=== PATIENT | female | born 1955 | race African-American/Black ===

== ENCOUNTER 2018-01-04 09:34 | Inpatient (IN) | payer OTHER ==
[2018-01-04] MEDS: CEFEPIME 2GM/50 ML (PMX) 50 ML IVPB (10:26)
[2018-01-04] MEDS: ACETAMINOPHEN 325 MG TAB PO ×2 (10:27→18:05)
[2018-01-04] MEDS: SODIUM CHLORIDE 0.9% 1L BAG IV* (10:29)
[2018-01-04 10:35] LABS: ANION GAP 10 (5-13); BLOOD UREA NITROGEN 18 mg/dl (7-20); CALCIUM 10.4 mg/dl (8.4-10.2); CARBON DIOXIDE 31 mmol/L (21-31); CHLORIDE 100 mmol/L (97-110); Estimated GFR > 60 mL/min (>60); GLUCOSE 137 mg/dl (70-220); POTASSIUM 4.4 mmol/L (3.5-5.1); SODIUM 141 mmol/L (135-144)
[2018-01-04 10:36] LABS: ADD MAN DIFF? NO
[2018-01-04 10:37] LABS: PARTIAL THROMBOPLASTIN TIME 28.1 Sec (23.0-35.0); PROTIME 13.3 Sec (11.9-14.9)
[2018-01-04 10:38] LABS: WHITE BLOOD COUNT 10.9 10^3/ul (4.8-10.8)
[2018-01-04 10:38] LABS: ABNORMAL IP MESSAGE 1; BASOPHILS % 0.2 % (0.0-2.0); EOSINOPHILS % 0.1 % (0.0-7.0); HEMATOCRIT 39.6 % (37.0-47.0); HEMOGLOBIN 12.8 g/dl (12.0-16.0); LYMPHOCYTES # 0.5 10^3/ul (0.8-2.9); LYMPHOCYTES % 4.7 % (15.0-51.0); MEAN CORPUSCULAR HEMOGLOBIN 29.8 pg (29.0-33.0); MEAN CORPUSCULAR HGB CONC 32.3 g/dl (32.0-37.0); MEAN CORPUSCULAR VOLUME 92.3 fl (82.0-101.0); MEAN PLATELET VOLUME 11.1 fl (7.4-10.4); MONOCYTES % 9.3 % (0.0-11.0); NEUTROPHIL # 9.3 10^3/ul (1.6-7.5); NEUTROPHILS % 85.2 % (39.0-77.0); PLATELET COUNT 187 10^3/UL (140-415); POSITIVE DIFF @See below; RED BLOOD COUNT 4.29 10^6/ul (4.20-5.40); RED CELL DISTRIBUTION WIDTH 13.3 % (11.5-14.5)
[2018-01-04 10:47] LABS: TROPONIN-I < 0.012 ng/ml (0.000-0.120)
[2018-01-04] MEDS: VANCOMYCIN 1 GM (PMX) 250 ML IVPB (11:09)
[2018-01-04 12:07] LABS: ADD UMIC YES; UR ASCORBIC ACID NEGATIVE (NEGATIVE); UR BACTERIA FEW /HPF (NONE SEEN); UR BILIRUBIN (Dip) NEGATIVE (NEGATIVE); UR BLOOD (Dip) 1+ mg/dL (NEGATIVE); UR CLARITY CLEAR (CLEAR); UR COLOR YELLOW (YELLOW); UR GLUCOSE (Dip) NEGATIVE (NEGATIVE); UR KETONES (Dip) NEGATIVE (NEGATIVE); UR LEUKOCYTE ESTERASE (Dip) 2+ Leu/ul (NEGATIVE); UR NITRITE (Dip) NEGATIVE (NEGATIVE); UR RBC 5 /HPF (0-5); UR TOTAL PROTEIN (Dip) NEGATIVE (NEGATIVE); UR UROBILINOGEN (Dip) NEGATIVE (NEGATIVE); UR WBC 10 /HPF (0-5)
[2018-01-04] MEDS ORDERED: ONDANSETRON 4 MG INJ IV (15:00)
[2018-01-04] MEDS ORDERED: ACETAMINOPHEN 325 MG TAB PO (15:00)
[2018-01-04] MEDS ORDERED: NACL 0.9% 3 ML SYG IV (16:00)
[2018-01-04] MEDS: INSULIN ASPART [NOVOLOG] 3 ML PEN SC ×4 (18:00→21:00)
[2018-01-04] MEDS: CEFTRIAXONE 1 GM/50 ML (PMX) 50 ML IVPB (18:02)
[2018-01-04] MEDS: hydrALAzine 20 MG INJ IV (20:45)
[2018-01-04] MEDS: ATORVASTATIN 20 MG TAB PO (21:38)
[2018-01-04] MEDS: HYDROCODONE/APAP (5/325) TAB PO (22:05)
[2018-01-05 01:35] LABS: AMPHETAMINE/METHAMPHETAMINE Negative (NEGATIVE); BARBITURATES Negative (NEGATIVE); BENZODIAZEPINES Negative (NEGATIVE); CANNABINOIDS Negative (NEGATIVE); COCAINE Negative (NEGATIVE)
[2018-01-05 01:54] LABS: OPIATES Positive (NEGATIVE)
[2018-01-05] MEDS: ENALAPRILAT 1.25 MG INJ IV (02:40)
[2018-01-05 05:44] LABS: ADD MAN DIFF? NO
[2018-01-05 05:45] LABS: ABNORMAL IP MESSAGE 1; BASOPHILS % 0.3 % (0.0-2.0); EOSINOPHILS # 0.1 10^3/ul (0.0-0.5); EOSINOPHILS % 0.8 % (0.0-7.0); HEMOGLOBIN 13.1 g/dl (12.0-16.0); LYMPHOCYTES # 0.5 10^3/ul (0.8-2.9); LYMPHOCYTES % 7.1 % (15.0-51.0); MEAN CORPUSCULAR HEMOGLOBIN 29.5 pg (29.0-33.0); MEAN CORPUSCULAR VOLUME 92.3 fl (82.0-101.0); MEAN PLATELET VOLUME 11.7 fl (7.4-10.4); MONOCYTES % 14.9 % (0.0-11.0); NEUTROPHIL # 4.9 10^3/ul (1.6-7.5); NEUTROPHILS % 76.4 % (39.0-77.0); PLATELET COUNT 166 10^3/UL (140-415); RED BLOOD COUNT 4.44 10^6/ul (4.20-5.40); RED CELL DISTRIBUTION WIDTH 13.6 % (11.5-14.5)
[2018-01-05 05:45] LABS: WHITE BLOOD COUNT 6.4 10^3/ul (4.8-10.8)
[2018-01-05 06:02] LABS: POSITIVE DIFF @See below
[2018-01-05 06:22] LABS: CHOLESTEROL 124 mg/dl (100-200)
[2018-01-05 06:22] LABS: CHOL/HDL RATIO 3.4 RATIO; HDL CHOLESTEROL 36 mg/dl (35-98); LDL CHOLESTEROL,CALCULATED 71 mg/dl; TRIGLYCERIDES 85 mg/dl (0-149)
[2018-01-05 06:33] LABS: MAGNESIUM 1.1 mg/dl (1.7-2.5)
[2018-01-05 06:33] LABS: PHOSPHORUS 2.6 mg/dl (2.5-4.9)
[2018-01-05 06:36] LABS: ALANINE AMINOTRANSFERASE 28 IU/L (13-69); ALBUMIN 4.2 g/dl (3.3-4.9); ALBUMIN/GLOBULIN RATIO 1.16; ALKALINE PHOSPHATASE 62 IU/L (42-121); ANION GAP 9 (5-13); ASPARTATE AMINO TRANSFERASE 28 IU/L (15-46); BILIRUBIN,INDIRECT 0.4 mg/dl (0-1.1); BILIRUBIN,TOTAL 0.4 mg/dl (0.2-1.3); BLOOD UREA NITROGEN 9 mg/dl (7-20); CALCIUM 10.3 mg/dl (8.4-10.2); CARBON DIOXIDE 30 mmol/L (21-31); CHLORIDE 101 mmol/L (97-110); Estimated GFR > 60 mL/min (>60); GLUCOSE 150 mg/dl (70-220); POTASSIUM 4.2 mmol/L (3.5-5.1); SODIUM 140 mmol/L (135-144); TOTAL PROTEIN 7.8 g/dl (6.1-8.1)
[2018-01-05 06:48] LABS: HEMOGLOBIN A1C 5.9 % (0-5.9)
[2018-01-05] MEDS: ACETAMINOPHEN 325 MG TAB PO (06:51)
[2018-01-05] MEDS: CHOLECALCIFEROL 1,000 UNIT TAB PO (08:15)
[2018-01-05] MEDS: LOSARTAN 50 MG TAB PO ×2 (08:15→21:00)
[2018-01-05] MEDS: INSULIN ASPART [NOVOLOG] 3 ML PEN SC ×7 (08:17→21:56)
[2018-01-05] MEDS: ASPIRIN (EC) 81 MG TAB PO (12:00)
[2018-01-05] MEDS: ENOXAPARIN 40 MG/0.4 ML SYG SC (13:04)
[2018-01-05 13:05] LABS: CREATINE KINASE 92 IU/L (23-200)
[2018-01-05 13:14] LABS: CK INDEX 0.4; CK-MB 0.37 ng/ml (0.0-2.4); TROPONIN-I < 0.012 ng/ml (0.000-0.120)
[2018-01-05] MEDS ORDERED: NALOXONE (0.4 MG/ML) INJ (13:28)
[2018-01-05] MEDS: NALOXONE (0.4 MG/ML) INJ IV (13:36)
[2018-01-05 13:41] LABS: AADO2 Arterial 65.5 mmHg (7.0-24.0); Allen Test ACCEPTAB; Arterial Blood Gas Oxygen Sat 94.9 mmHG (95.0-98.0); Arterial COHb 1.5 % (0.0-3.0); Arterial Fraction of Oxyhgb 93.3 % (93.0-99.0); Arterial HCO3 30.1 mmol/L (22.0-26.0); Arterial MetHb 0.2 % (0.0-1.5); Arterial Total Hemglobin 13.8 g/dl (12.0-18.0); Arterial pCO2 45.7 mmhg (35-45); MODE NASAL CANNULA; Site Left Radial
[2018-01-05] MEDS: MAGNESIUM SULFATE 4 GM/100 ML 100 ML IVPB (15:39)
[2018-01-05] MEDS ORDERED: VANCOMYCIN IV PER PHARMACY XX (16:30)
[2018-01-05] MEDS: SOD CHLORIDE 0.9% 1,000 ML IV (17:40)
[2018-01-05] MEDS ORDERED: DEXTROSE 50% 50 ML SYRINGE IV ×2 (18:00)
[2018-01-05] MEDS ORDERED: GLUCOSE GEL 15 GRAM TUBE BUCCAL (18:00)
[2018-01-05] MEDS ORDERED: GLUCOSE GEL 15 GRAM TUBE PO ×2 (18:00)
[2018-01-05] MEDS ORDERED: GLUCAGON 1 MG INJ IM (18:00)
[2018-01-05 18:31] LABS: LACTIC ACID 2.1 mmol/L (0.5-2.0)
[2018-01-05 20:18] LABS: CREATINE KINASE 71 IU/L (23-200)
[2018-01-05] MEDS: VANCOMYCIN 2 GM in SOD CHLORIDE 0.9% 500 ML IVPB (20:21)
[2018-01-05] MEDS: ACETAMINOPHEN 650 MG SUPP PR (20:22)
[2018-01-05] MEDS: hydrALAzine 20 MG INJ IV (20:26)
[2018-01-05 20:32] LABS: CK INDEX 0.3; CK-MB < 0.22 ng/ml (0.0-2.4); TROPONIN-I < 0.012 ng/ml (0.000-0.120)
[2018-01-05] MEDS: ATORVASTATIN 20 MG TAB PO (21:00)
[2018-01-05] MEDS: CEFEPIME 1GM/50 ML (PMX) 50 ML IVPB (21:52)
[2018-01-06 01:19] LABS: LACTIC ACID 1.1 mmol/L (0.5-2.0)
[2018-01-06] MEDS: INSULIN ASPART [NOVOLOG] 3 ML PEN SC ×7 (01:56→21:15)
[2018-01-06] MEDS: SOD CHLORIDE 0.9% 1,000 ML IV ×3 (01:57→22:44)
[2018-01-06] MEDS: hydrALAzine 20 MG INJ IV ×3 (04:00→23:55)
[2018-01-06 05:45] LABS: ADD MAN DIFF? NO
[2018-01-06] MEDS: VANCOMYCIN 2 GM in SOD CHLORIDE 0.9% 500 ML IVPB ×2 (05:48→19:53)
[2018-01-06 05:50] LABS: WHITE BLOOD COUNT 3.7 10^3/ul (4.8-10.8)
[2018-01-06 05:50] LABS: ABNORMAL IP MESSAGE 1; BASOPHILS % 0.3 % (0.0-2.0); EOSINOPHILS % 0.3 % (0.0-7.0); HEMATOCRIT 42.8 % (37.0-47.0); HEMOGLOBIN 13.4 g/dl (12.0-16.0); LYMPHOCYTES # 0.4 10^3/ul (0.8-2.9); LYMPHOCYTES % 11.2 % (15.0-51.0); MEAN CORPUSCULAR HGB CONC 31.3 g/dl (32.0-37.0); MEAN CORPUSCULAR VOLUME 92.6 fl (82.0-101.0); MEAN PLATELET VOLUME 11.1 fl (7.4-10.4); MONOCYTE # 0.9 10^3/ul (0.3-0.9); NEUTROPHIL # 2.4 10^3/ul (1.6-7.5); NEUTROPHILS % 64.9 % (39.0-77.0); PLATELET COUNT 187 10^3/UL (140-415); RED BLOOD COUNT 4.62 10^6/ul (4.20-5.40); RED CELL DISTRIBUTION WIDTH 13.6 % (11.5-14.5)
[2018-01-06 06:02] LABS: POSITIVE DIFF @See below
[2018-01-06 06:11] LABS: LACTIC ACID 1.2 mmol/L (0.5-2.0)
[2018-01-06 06:15] LABS: ANION GAP 13 (5-13); BLOOD UREA NITROGEN 9 mg/dl (7-20); CALCIUM 9.6 mg/dl (8.4-10.2); CARBON DIOXIDE 27 mmol/L (21-31); CHLORIDE 102 mmol/L (97-110); CREATININE 0.48 mg/dl (0.44-1.00); Estimated GFR > 60 mL/min (>60); GLUCOSE 170 mg/dl (70-220); POTASSIUM 4.5 mmol/L (3.5-5.1); SODIUM 142 mmol/L (135-144)
[2018-01-06 06:17] LABS: MAGNESIUM 1.6 mg/dl (1.7-2.5)
[2018-01-06 06:17] LABS: PHOSPHORUS 2.4 mg/dl (2.5-4.9)
[2018-01-06] MEDS: ACETAMINOPHEN 1000MG/100ML IV 100 ML IVPB ×2 (06:20→20:12)
[2018-01-06 06:24] LABS: CREATINE KINASE 64 IU/L (23-200)
[2018-01-06 06:35] LABS: CK INDEX 0.3; CK-MB < 0.22 ng/ml (0.0-2.4); TROPONIN-I 0.019 ng/ml (0.000-0.120)
[2018-01-06] MEDS: ACETAMINOPHEN 650 MG SUPP PR ×2 (08:04→17:05)
[2018-01-06] MEDS: KETOROLAC 30 MG INJ IV (08:05)
[2018-01-06] MEDS: LOSARTAN 50 MG TAB PO ×2 (09:00→21:00)
[2018-01-06] MEDS: CHOLECALCIFEROL 1,000 UNIT TAB PO (09:00)
[2018-01-06] MEDS: ASPIRIN (EC) 81 MG TAB PO (09:00)
[2018-01-06] MEDS: CEFEPIME 1GM/50 ML (PMX) 50 ML IVPB (09:17)
[2018-01-06] MEDS: SOD CHLORIDE 0.9% 500 ML IV (09:18)
[2018-01-06 10:31] LABS: AMMONIA 17 umol/l (9-30)
[2018-01-06] MEDS: LIDOCAINE 1% (MPF) 5 ML VIAL (15:15)
[2018-01-06 17:12] LABS: Allen Test ACCEPTAB; Arterial Base Excess 1.8 mmol/L (-3.0-3); Arterial Blood Gas Oxygen Sat 98.1 mmHG (95.0-98.0); Arterial COHb 0.8 % (0.0-3.0); Arterial HCO3 27.1 mmol/L (22.0-26.0); Arterial MetHb 0.3 % (0.0-1.5); Arterial pCO2 44.6 mmhg (35-45); MODE NASAL CANNULA; Site Left Radial
[2018-01-06 17:46] LABS: CSF RBC 0 /uL (0-0); CSF WBC 1 /cmm (0-10)
[2018-01-06 17:52] LABS: CSF CLARITY CLEAR; CSF VOLUME 5.5 ml; CSF#TUBE COUNT TUBE#4; CSF#TUBES REC'D 4
[2018-01-06 17:52] LABS: CSF COLOR COLORLESS
[2018-01-06 17:53] LABS: GLUCOSE,CSF 102 mg/dl (50-80)
[2018-01-06 17:53] LABS: TOTAL PROTEIN,CSF 48 mg/dl (12-60)
[2018-01-06] MEDS: PIPER-TAZO 3.375 GM IV (PMX) 100 ML IVPB ×2 (18:38→23:49)
[2018-01-06] MEDS: ATORVASTATIN 20 MG TAB PO (21:00)
[2018-01-06] MEDS: MAGNESIUM SULFATE 2 GM/50 ML 50 ML IVPB (21:06)
[2018-01-06] MEDS ORDERED: ACYCLOVIR 500 MG in SOD CHLORIDE 0.9% 100 ML IVPB (22:00)
[2018-01-06] MEDS: ACYCLOVIR 750 MG in SOD CHLORIDE 0.9% 150 ML IVPB (22:44)
[2018-01-07] MEDS: INSULIN ASPART [NOVOLOG] 3 ML PEN SC ×6 (01:00→20:39)
[2018-01-07] MEDS ORDERED: LABETALOL HCL 20MG INJ IV (05:00)
[2018-01-07 05:31] LABS: ADD MAN DIFF? NO
[2018-01-07] MEDS: PIPER-TAZO 3.375 GM IV (PMX) 100 ML IVPB ×3 (05:38→17:32)
[2018-01-07 05:39] LABS: ABNORMAL IP MESSAGE 1; BASOPHILS % 0.3 % (0.0-2.0); HEMATOCRIT 42.1 % (37.0-47.0); HEMOGLOBIN 12.9 g/dl (12.0-16.0); LYMPHOCYTES # 0.4 10^3/ul (0.8-2.9); LYMPHOCYTES % 10.4 % (15.0-51.0); MEAN CORPUSCULAR HEMOGLOBIN 28.8 pg (29.0-33.0); MEAN CORPUSCULAR HGB CONC 30.6 g/dl (32.0-37.0); MEAN PLATELET VOLUME 11.3 fl (7.4-10.4); MONOCYTE # 0.7 10^3/ul (0.3-0.9); MONOCYTES % 18.9 % (0.0-11.0); NEUTROPHIL # 2.7 10^3/ul (1.6-7.5); NEUTROPHILS % 70.1 % (39.0-77.0); PLATELET COUNT 191 10^3/UL (140-415); RED BLOOD COUNT 4.48 10^6/ul (4.20-5.40); RED CELL DISTRIBUTION WIDTH 13.8 % (11.5-14.5)
[2018-01-07 05:39] LABS: WHITE BLOOD COUNT 3.9 10^3/ul (4.8-10.8)
[2018-01-07] MEDS: ACYCLOVIR 750 MG in SOD CHLORIDE 0.9% 150 ML IVPB ×3 (05:39→21:45)
[2018-01-07 05:51] LABS: POSITIVE DIFF @See below
[2018-01-07 06:11] LABS: VANCOMYCIN,TROUGH 13.9 ug/ml (10.0-20.0)
[2018-01-07 06:15] LABS: PHOSPHORUS 2.1 mg/dl (2.5-4.9)
[2018-01-07 06:15] LABS: MAGNESIUM 1.7 mg/dl (1.7-2.5)
[2018-01-07 06:19] LABS: ALANINE AMINOTRANSFERASE 25 IU/L (13-69); ALBUMIN 3.6 g/dl (3.3-4.9); ALBUMIN/GLOBULIN RATIO 0.94; ALKALINE PHOSPHATASE 55 IU/L (42-121); ANION GAP 12 (5-13); ASPARTATE AMINO TRANSFERASE 34 IU/L (15-46); BILIRUBIN,INDIRECT 0.3 mg/dl (0-1.1); BILIRUBIN,TOTAL 0.3 mg/dl (0.2-1.3); BLOOD UREA NITROGEN 11 mg/dl (7-20); CALCIUM 9.2 mg/dl (8.4-10.2); CARBON DIOXIDE 26 mmol/L (21-31); CHLORIDE 106 mmol/L (97-110); CREATININE 0.43 mg/dl (0.44-1.00); Estimated GFR > 60 mL/min (>60); GLUCOSE 205 mg/dl (70-220); POTASSIUM 4.5 mmol/L (3.5-5.1); SODIUM 144 mmol/L (135-144); TOTAL PROTEIN 7.4 g/dl (6.1-8.1)
[2018-01-07] MEDS: SOD CHLORIDE 0.9% 1,000 ML IV ×2 (06:37→17:32)
[2018-01-07] MEDS: VANCOMYCIN 2 GM in SOD CHLORIDE 0.9% 500 ML IVPB ×2 (06:56→17:32)
[2018-01-07] MEDS: LABETALOL HCL 20MG INJ IV (07:00)
[2018-01-07] MEDS: ACETAMINOPHEN 650 MG SUPP PR (08:53)
[2018-01-07] MEDS: hydrALAzine 20 MG INJ IV ×2 (08:53→15:45)
[2018-01-07] MEDS: ASPIRIN (EC) 81 MG TAB PO (09:00)
[2018-01-07] MEDS: LOSARTAN 50 MG TAB PO ×2 (09:00→20:17)
[2018-01-07] MEDS: CHOLECALCIFEROL 1,000 UNIT TAB PO (09:00)
[2018-01-07] MEDS: MAGNESIUM SULFATE 1 GM/D5W 100 ML IVPB (10:08)
[2018-01-07] MEDS: ENOXAPARIN 40 MG/0.4 ML SYG SC (10:14)
[2018-01-07 12:28] LABS: HIV 1&2 ANTIBODY NEGATIVE (NEGATIVE)
[2018-01-07] MEDS: SODIUM PHOSPHATE 15 MMOL in SOD CHLORIDE 0.9% 250 ML IVPB (12:45)
[2018-01-07] MEDS: METOPROLOL 5 MG INJ IV ×3 (12:46→23:10)
[2018-01-07] MEDS: ATORVASTATIN 20 MG TAB PO (20:18)
[2018-01-08] MEDS: PIPER-TAZO 3.375 GM IV (PMX) 100 ML IVPB ×4 (00:33→17:50)
[2018-01-08] MEDS: INSULIN ASPART [NOVOLOG] 3 ML PEN SC ×6 (00:43→21:10)
[2018-01-08] MEDS: SOD CHLORIDE 0.9% 1,000 ML IV ×2 (04:29→14:30)
[2018-01-08] MEDS: METOPROLOL 5 MG INJ IV ×3 (05:16→17:29)
[2018-01-08] MEDS: VANCOMYCIN 2 GM in SOD CHLORIDE 0.9% 500 ML IVPB ×2 (05:17→18:25)
[2018-01-08 06:06] LABS: ADD MAN DIFF? NO
[2018-01-08 06:07] LABS: BASOPHILS % 0.2 % (0.0-2.0); EOSINOPHILS % 0.2 % (0.0-7.0); HEMATOCRIT 38.9 % (37.0-47.0); HEMOGLOBIN 11.7 g/dl (12.0-16.0); LYMPHOCYTES # 0.9 10^3/ul (0.8-2.9); LYMPHOCYTES % 21.2 % (15.0-51.0); MEAN CORPUSCULAR HGB CONC 30.1 g/dl (32.0-37.0); MEAN CORPUSCULAR VOLUME 96.3 fl (82.0-101.0); MEAN PLATELET VOLUME 11.2 fl (7.4-10.4); MONOCYTE # 0.8 10^3/ul (0.3-0.9); MONOCYTES % 19.5 % (0.0-11.0); NEUTROPHIL # 2.4 10^3/ul (1.6-7.5); NEUTROPHILS % 58.7 % (39.0-77.0); PLATELET COUNT 198 10^3/UL (140-415); RED BLOOD COUNT 4.04 10^6/ul (4.20-5.40); RED CELL DISTRIBUTION WIDTH 14.1 % (11.5-14.5)
[2018-01-08 06:59] LABS: ALANINE AMINOTRANSFERASE 24 IU/L (13-69); ALKALINE PHOSPHATASE 44 IU/L (42-121); ANION GAP 8 (5-13); ASPARTATE AMINO TRANSFERASE 33 IU/L (15-46); BILIRUBIN,INDIRECT 0.4 mg/dl (0-1.1); BILIRUBIN,TOTAL 0.4 mg/dl (0.2-1.3); BLOOD UREA NITROGEN 11 mg/dl (7-20); CALCIUM 9.4 mg/dl (8.4-10.2); CARBON DIOXIDE 30 mmol/L (21-31); CHLORIDE 109 mmol/L (97-110); CREATININE 0.52 mg/dl (0.44-1.00); Estimated GFR > 60 mL/min (>60); GLUCOSE 153 mg/dl (70-220); POTASSIUM 4.3 mmol/L (3.5-5.1); SODIUM 147 mmol/L (135-144)
[2018-01-08 07:00] LABS: ALBUMIN 3.3 g/dl (3.3-4.9); ALBUMIN/GLOBULIN RATIO 0.94; MAGNESIUM 1.6 mg/dl (1.7-2.5); TOTAL PROTEIN 6.8 g/dl (6.1-8.1)
[2018-01-08] MEDS: ENOXAPARIN 40 MG/0.4 ML SYG SC (08:27)
[2018-01-08] MEDS: ASPIRIN (EC) 81 MG TAB PO (08:27)
[2018-01-08] MEDS: LOSARTAN 50 MG TAB PO ×2 (08:27→21:07)
[2018-01-08] MEDS: CHOLECALCIFEROL 1,000 UNIT TAB PO (08:27)
[2018-01-08] MEDS: MAGNESIUM SULFATE 2 GM/50 ML 50 ML IVPB (10:43)
[2018-01-08] MEDS: POTASSIUM PHOSPHATE 15 MM in SOD CHLORIDE 0.9% 250 ML IVPB (10:45)
[2018-01-08 21:04] LABS: ADD MAN DIFF? NO
[2018-01-08 21:06] LABS: WHITE BLOOD COUNT 5.2 10^3/ul (4.8-10.8)
[2018-01-08 21:06] LABS: BASOPHILS % 0.2 % (0.0-2.0); EOSINOPHILS % 0.8 % (0.0-7.0); HEMATOCRIT 30.9 % (37.0-47.0); HEMOGLOBIN 9.4 g/dl (12.0-16.0); LYMPHOCYTES # 1.1 10^3/ul (0.8-2.9); LYMPHOCYTES % 21.8 % (15.0-51.0); MEAN CORPUSCULAR HEMOGLOBIN 29.1 pg (29.0-33.0); MEAN CORPUSCULAR HGB CONC 30.4 g/dl (32.0-37.0); MEAN CORPUSCULAR VOLUME 95.7 fl (82.0-101.0); MEAN PLATELET VOLUME 10.4 fl (7.4-10.4); MONOCYTE # 0.6 10^3/ul (0.3-0.9); MONOCYTES % 12.3 % (0.0-11.0); NEUTROPHIL # 3.4 10^3/ul (1.6-7.5); NEUTROPHILS % 64.5 % (39.0-77.0); PLATELET COUNT 178 10^3/UL (140-415); RED BLOOD COUNT 3.23 10^6/ul (4.20-5.40); RED CELL DISTRIBUTION WIDTH 13.8 % (11.5-14.5)
[2018-01-08] MEDS: ATORVASTATIN 20 MG TAB PO (21:07)
[2018-01-08 21:28] LABS: ANION GAP 3 (5-13); BLOOD UREA NITROGEN 26 mg/dl (7-20); CALCIUM 9.1 mg/dl (8.4-10.2); CARBON DIOXIDE 33 mmol/L (21-31); CHLORIDE 104 mmol/L (97-110); CREATININE 0.47 mg/dl (0.44-1.00); Estimated GFR > 60 mL/min (>60); GLUCOSE 226 mg/dl (70-220); MAGNESIUM 1.6 mg/dl (1.7-2.5); POTASSIUM 4.1 mmol/L (3.5-5.1); SODIUM 140 mmol/L (135-144)
[2018-01-08 22:23] LABS: VDRL, CSF NON-REACTIVE
[2018-01-09] MEDS: PIPER-TAZO 3.375 GM IV (PMX) 100 ML IVPB ×5 (00:36→23:46)
[2018-01-09] MEDS: METOPROLOL 5 MG INJ IV ×3 (00:43→13:46)
[2018-01-09] MEDS: ACCU-CHEK XX (02:00)
[2018-01-09] MEDS: MAGNESIUM SULFATE 3 GM in DEXTROSE 5% 100 ML IVPB (02:05)
[2018-01-09 03:03] LABS: ADD MAN DIFF? NO
[2018-01-09 03:04] LABS: WHITE BLOOD COUNT 4.8 10^3/ul (4.8-10.8)
[2018-01-09 03:04] LABS: BASOPHILS % 0.2 % (0.0-2.0); EOSINOPHILS # 0.1 10^3/ul (0.0-0.5); EOSINOPHILS % 1.2 % (0.0-7.0); HEMOGLOBIN 8.6 g/dl (12.0-16.0); LYMPHOCYTES # 1.4 10^3/ul (0.8-2.9); LYMPHOCYTES % 28.1 % (15.0-51.0); MEAN CORPUSCULAR HEMOGLOBIN 29.3 pg (29.0-33.0); MEAN CORPUSCULAR HGB CONC 30.7 g/dl (32.0-37.0); MEAN CORPUSCULAR VOLUME 95.2 fl (82.0-101.0); MEAN PLATELET VOLUME 11.1 fl (7.4-10.4); MONOCYTE # 0.6 10^3/ul (0.3-0.9); NEUTROPHIL # 2.8 10^3/ul (1.6-7.5); NEUTROPHILS % 57.1 % (39.0-77.0); PLATELET COUNT 167 10^3/UL (140-415); RED BLOOD COUNT 2.94 10^6/ul (4.20-5.40); RED CELL DISTRIBUTION WIDTH 13.7 % (11.5-14.5)
[2018-01-09 06:13] LABS: ADD MAN DIFF? NO
[2018-01-09 06:17] LABS: BASOPHILS % 0.3 % (0.0-2.0); HEMATOCRIT 28.6 % (37.0-47.0); HEMOGLOBIN 8.8 g/dl (12.0-16.0); LYMPHOCYTES # 1.1 10^3/ul (0.8-2.9); LYMPHOCYTES % 27.5 % (15.0-51.0); MEAN CORPUSCULAR HEMOGLOBIN 29.4 pg (29.0-33.0); MEAN CORPUSCULAR HGB CONC 30.8 g/dl (32.0-37.0); MEAN CORPUSCULAR VOLUME 95.7 fl (82.0-101.0); MEAN PLATELET VOLUME 11.6 fl (7.4-10.4); MONOCYTE # 0.5 10^3/ul (0.3-0.9); MONOCYTES % 13.2 % (0.0-11.0); NEUTROPHIL # 2.3 10^3/ul (1.6-7.5); NEUTROPHILS % 57.5 % (39.0-77.0); PLATELET COUNT 176 10^3/UL (140-415); RED BLOOD COUNT 2.99 10^6/ul (4.20-5.40); RED CELL DISTRIBUTION WIDTH 13.7 % (11.5-14.5)
[2018-01-09 06:17] LABS: WHITE BLOOD COUNT 3.9 10^3/ul (4.8-10.8)
[2018-01-09 06:39] LABS: PHOSPHORUS 1.9 mg/dl (2.5-4.9)
[2018-01-09 06:39] LABS: MAGNESIUM 1.7 mg/dl (1.7-2.5)
[2018-01-09 06:42] LABS: ANION GAP 7 (5-13); BLOOD UREA NITROGEN 20 mg/dl (7-20); CALCIUM 8.9 mg/dl (8.4-10.2); CARBON DIOXIDE 29 mmol/L (21-31); CHLORIDE 106 mmol/L (97-110); CREATININE 0.38 mg/dl (0.44-1.00); Estimated GFR > 60 mL/min (>60); GLUCOSE 223 mg/dl (70-220); POTASSIUM 4.1 mmol/L (3.5-5.1); SODIUM 142 mmol/L (135-144)
[2018-01-09] MEDS: INSULIN ASPART [NOVOLOG] 3 ML PEN SC ×4 (08:00→21:53)
[2018-01-09] MEDS: ASPIRIN (EC) 81 MG TAB PO (08:42)
[2018-01-09] MEDS: LOSARTAN 50 MG TAB PO ×2 (08:42→21:46)
[2018-01-09] MEDS: CHOLECALCIFEROL 1,000 UNIT TAB PO (08:42)
[2018-01-09] MEDS: ENOXAPARIN 40 MG/0.4 ML SYG SC (09:48)
[2018-01-09] MEDS: ALBUTEROL 0.083% (NEB) 2.5 MG/3 ML AMP HHN (14:06)
[2018-01-09] MEDS: MAGNESIUM SULFATE 2 GM/50 ML 50 ML IVPB (15:30)
[2018-01-09] MEDS: SODIUM PHOSPHATE 15 MMOL in SOD CHLORIDE 0.9% 250 ML IVPB (15:30)
[2018-01-09] MEDS: ONDANSETRON 4 MG INJ IV (16:13)
[2018-01-09] MEDS: METOPROLOL 25 MG TAB PO (21:46)
[2018-01-09] MEDS: ATORVASTATIN 20 MG TAB PO (21:46)
[2018-01-10] MEDS: ACCU-CHEK XX (02:45)
[2018-01-10] MEDS: PIPER-TAZO 3.375 GM IV (PMX) 100 ML IVPB ×3 (05:41→17:33)
[2018-01-10 06:08] LABS: ADD MAN DIFF? NO
[2018-01-10 06:09] LABS: WHITE BLOOD COUNT 4.7 10^3/ul (4.8-10.8)
[2018-01-10 06:09] LABS: BASOPHILS % 0.2 % (0.0-2.0); EOSINOPHILS # 0.1 10^3/ul (0.0-0.5); EOSINOPHILS % 1.1 % (0.0-7.0); HEMATOCRIT 26.9 % (37.0-47.0); HEMOGLOBIN 8.3 g/dl (12.0-16.0); LYMPHOCYTES # 1.2 10^3/ul (0.8-2.9); LYMPHOCYTES % 24.7 % (15.0-51.0); MEAN CORPUSCULAR HEMOGLOBIN 29.2 pg (29.0-33.0); MEAN CORPUSCULAR HGB CONC 30.9 g/dl (32.0-37.0); MEAN CORPUSCULAR VOLUME 94.7 fl (82.0-101.0); MEAN PLATELET VOLUME 11.4 fl (7.4-10.4); MONOCYTE # 0.5 10^3/ul (0.3-0.9); MONOCYTES % 10.2 % (0.0-11.0); NEUTROPHILS % 63.2 % (39.0-77.0); PLATELET COUNT 163 10^3/UL (140-415); RED BLOOD COUNT 2.84 10^6/ul (4.20-5.40); RED CELL DISTRIBUTION WIDTH 13.6 % (11.5-14.5)
[2018-01-10 06:24] LABS: ANION GAP 5 (5-13); BLOOD UREA NITROGEN 7 mg/dl (7-20); CALCIUM 9.1 mg/dl (8.4-10.2); CARBON DIOXIDE 34 mmol/L (21-31); CHLORIDE 101 mmol/L (97-110); Estimated GFR > 60 mL/min (>60); GLUCOSE 233 mg/dl (70-220); POTASSIUM 3.6 mmol/L (3.5-5.1); SODIUM 140 mmol/L (135-144)
[2018-01-10 06:33] LABS: MAGNESIUM 1.4 mg/dl (1.7-2.5)
[2018-01-10 06:33] LABS: PHOSPHORUS 2.6 mg/dl (2.5-4.9)
[2018-01-10] MEDS: INSULIN ASPART [NOVOLOG] 3 ML PEN SC ×6 (08:04→20:34)
[2018-01-10 08:31] LABS: WEST NILE VIRUS ANTIBODY (IGG) <1.30 index; WEST NILE VIRUS ANTIBODY (IGM) <0.90 index
[2018-01-10] MEDS: ASPIRIN (EC) 81 MG TAB PO (08:45)
[2018-01-10] MEDS: CHOLECALCIFEROL 1,000 UNIT TAB PO (08:45)
[2018-01-10] MEDS: METOPROLOL 25 MG TAB PO ×2 (08:45→20:27)
[2018-01-10] MEDS: LOSARTAN 50 MG TAB PO ×2 (08:45→20:28)
[2018-01-10] MEDS: ENOXAPARIN 40 MG/0.4 ML SYG SC (08:54)
[2018-01-10] MEDS: MAGNESIUM SULFATE 3 GM in DEXTROSE 5% 100 ML IVPB (11:25)
[2018-01-10] MEDS: ATORVASTATIN 20 MG TAB PO (20:24)
[2018-01-10] MEDS: INSULIN GLARGINE [LANTus] (100 UNITS/ML) SYG SC (20:35)
[2018-01-10] MEDS: ALBUTEROL 0.083% (NEB) 2.5 MG/3 ML AMP HHN (21:59)
[2018-01-11] MEDS: PIPER-TAZO 3.375 GM IV (PMX) 100 ML IVPB ×5 (00:13→23:51)
[2018-01-11] MEDS: ACCU-CHEK XX (02:21)
[2018-01-11 06:01] LABS: WHITE BLOOD COUNT 5.4 10^3/ul (4.8-10.8)
[2018-01-11 06:01] LABS: HEMATOCRIT 24.3 % (37.0-47.0); HEMOGLOBIN 7.4 g/dl (12.0-16.0); MEAN CORPUSCULAR HEMOGLOBIN 28.7 pg (29.0-33.0); MEAN CORPUSCULAR HGB CONC 30.5 g/dl (32.0-37.0); MEAN CORPUSCULAR VOLUME 94.2 fl (82.0-101.0); MEAN PLATELET VOLUME 11.7 fl (7.4-10.4); PLATELET COUNT 183 10^3/UL (140-415); RED BLOOD COUNT 2.58 10^6/ul (4.20-5.40); RED CELL DISTRIBUTION WIDTH 13.4 % (11.5-14.5)
[2018-01-11 06:09] LABS: POSITIVE DIFF @See below
[2018-01-11 06:10] LABS: ADD MAN DIFF? YES
[2018-01-11 06:16] LABS: MAGNESIUM 1.4 mg/dl (1.7-2.5)
[2018-01-11 06:16] LABS: PHOSPHORUS 2.6 mg/dl (2.5-4.9)
[2018-01-11 06:35] LABS: ANION GAP 4 (5-13); BLOOD UREA NITROGEN 11 mg/dl (7-20); CALCIUM 9.1 mg/dl (8.4-10.2); CARBON DIOXIDE 36 mmol/L (21-31); CHLORIDE 101 mmol/L (97-110); CREATININE 0.47 mg/dl (0.44-1.00); Estimated GFR > 60 mL/min (>60); GLUCOSE 212 mg/dl (70-220); POTASSIUM 3.7 mmol/L (3.5-5.1); SODIUM 141 mmol/L (135-144)
[2018-01-11 07:13] LABS: BAND NEUTROPHILS #M 0.3 10^3/ul (0.0-0.6); BAND NEUTROPHILS % (M) 7 % (0-4); EOSINOPHILS % (M) 4 % (0-7); LYMPHOCYTES #M 1.1 10^3/ul (0.8-2.9); LYMPHOCYTES % (M) 22 % (15-51); MONOCYTE #M 0.1 10^3/ul (0.3-0.9); MONOCYTES % (M) 2 % (0-11); PLATELET ESTIMATE NORMAL; POLYCHROMASIA 1+ (0-0); REACTIVE LYMPHOCYTES #M 0.2 10^3/ul (0.0-0.0); REACTIVE LYMPHOCYTES% (M) 5 % (0-0); SEG NEUT #M 3.3 10^3/ul (1.6-7.5); SEGMENTED NEUTROPHILS (M) % 60 % (39-77); SMUDGE%M 9 % (0-0)
[2018-01-11] MEDS: INSULIN ASPART [NOVOLOG] 3 ML PEN SC ×7 (08:02→21:36)
[2018-01-11] MEDS: ASPIRIN (EC) 81 MG TAB PO (08:09)
[2018-01-11] MEDS: LOSARTAN 50 MG TAB PO ×2 (08:09→21:27)
[2018-01-11] MEDS: METOPROLOL 25 MG TAB PO ×2 (08:10→21:28)
[2018-01-11] MEDS: CHOLECALCIFEROL 1,000 UNIT TAB PO (08:10)
[2018-01-11] MEDS: ENOXAPARIN 40 MG/0.4 ML SYG SC (08:17)
[2018-01-11] MEDS ORDERED: DOCUSATE SODIUM 100 MG CAP PO (15:00)
[2018-01-11] MEDS: MAGNESIUM SULFATE 3 GM in DEXTROSE 5% 100 ML IVPB (15:33)
[2018-01-11] MEDS: ATORVASTATIN 20 MG TAB PO (21:27)
[2018-01-11] MEDS: LACTOBACILLUS RHAMNOSUS CAP PO (21:27)
[2018-01-11] MEDS: INSULIN GLARGINE [LANTus] (100 UNITS/ML) SYG SC (21:41)
[2018-01-12] MEDS: ACCU-CHEK XX (02:00)
[2018-01-12 05:45] LABS: ADD MAN DIFF? NO
[2018-01-12 05:51] LABS: WHITE BLOOD COUNT 7.2 10^3/ul (4.8-10.8)
[2018-01-12 05:51] LABS: BASOPHILS % 0.4 % (0.0-2.0); EOSINOPHILS # 0.2 10^3/ul (0.0-0.5); EOSINOPHILS % 2.2 % (0.0-7.0); HEMATOCRIT 23.4 % (37.0-47.0); HEMOGLOBIN 7.3 g/dl (12.0-16.0); LYMPHOCYTES # 1.5 10^3/ul (0.8-2.9); LYMPHOCYTES % 20.7 % (15.0-51.0); MEAN CORPUSCULAR HEMOGLOBIN 29.4 pg (29.0-33.0); MEAN CORPUSCULAR HGB CONC 31.2 g/dl (32.0-37.0); MEAN CORPUSCULAR VOLUME 94.4 fl (82.0-101.0); MEAN PLATELET VOLUME 12.7 fl (7.4-10.4); MONOCYTE # 0.8 10^3/ul (0.3-0.9); MONOCYTES % 10.5 % (0.0-11.0); NEUTROPHIL # 4.6 10^3/ul (1.6-7.5); PLATELET COUNT 180 10^3/UL (140-415); RED BLOOD COUNT 2.48 10^6/ul (4.20-5.40); RED CELL DISTRIBUTION WIDTH 13.6 % (11.5-14.5)
[2018-01-12] MEDS: PIPER-TAZO 3.375 GM IV (PMX) 100 ML IVPB (06:06)
[2018-01-12 06:18] LABS: INR 1.08; PROTIME 14.1 Sec (11.9-14.9); PT RATIO 1.1
[2018-01-12 06:24] LABS: TROPONIN-I < 0.012 ng/ml (0.000-0.120)
[2018-01-12 06:25] LABS: ALANINE AMINOTRANSFERASE 29 IU/L (13-69); ALBUMIN/GLOBULIN RATIO 1.07; ALKALINE PHOSPHATASE 35 IU/L (42-121); ANION GAP 7 (5-13); ASPARTATE AMINO TRANSFERASE 26 IU/L (15-46); BILIRUBIN,INDIRECT 0.1 mg/dl (0-1.1); BILIRUBIN,TOTAL 0.1 mg/dl (0.2-1.3); BLOOD UREA NITROGEN 5 mg/dl (7-20); CARBON DIOXIDE 36 mmol/L (21-31); CHLORIDE 99 mmol/L (97-110); Estimated GFR > 60 mL/min (>60); GLUCOSE 198 mg/dl (70-220); MAGNESIUM 1.6 mg/dl (1.7-2.5); POTASSIUM 3.9 mmol/L (3.5-5.1); SODIUM 142 mmol/L (135-144); TOTAL PROTEIN 5.8 g/dl (6.1-8.1)
[2018-01-12 07:18] LABS: FOLATE 12.5 ng/ml (2.8-20.0)
[2018-01-12] MEDS: INSULIN ASPART [NOVOLOG] 3 ML PEN SC ×7 (07:48→21:00)
[2018-01-12] MEDS: ASPIRIN (EC) 81 MG TAB PO (08:34)
[2018-01-12] MEDS: LOSARTAN 50 MG TAB PO ×2 (08:34→20:11)
[2018-01-12] MEDS: CHOLECALCIFEROL 1,000 UNIT TAB PO (08:34)
[2018-01-12] MEDS: LACTOBACILLUS RHAMNOSUS CAP PO ×2 (08:34→20:10)
[2018-01-12] MEDS: METOPROLOL 25 MG TAB PO ×2 (08:35→20:12)
[2018-01-12] MEDS: ENOXAPARIN 40 MG/0.4 ML SYG SC (08:40)
[2018-01-12] MEDS: ATORVASTATIN 20 MG TAB PO (20:10)
[2018-01-12] MEDS: INSULIN GLARGINE [LANTus] (100 UNITS/ML) SYG SC (20:24)
[2018-01-12 22:01] LABS: RAPID PLASMA REAGIN NONREACTIVE (NR)
[2018-01-13] MEDS: ACCU-CHEK XX (02:00)
[2018-01-13] MEDS: hydrALAzine 20 MG INJ IV (04:20)
[2018-01-13] MEDS: INSULIN ASPART [NOVOLOG] 3 ML PEN SC ×7 (07:54→20:17)
[2018-01-13] MEDS: LACTOBACILLUS RHAMNOSUS CAP PO ×2 (08:37→20:01)
[2018-01-13] MEDS: ASPIRIN (EC) 81 MG TAB PO (08:37)
[2018-01-13] MEDS: LOSARTAN 50 MG TAB PO ×2 (08:38→20:13)
[2018-01-13] MEDS: CHOLECALCIFEROL 1,000 UNIT TAB PO (08:38)
[2018-01-13] MEDS: METOPROLOL 25 MG TAB PO (08:38)
[2018-01-13] MEDS: ENOXAPARIN 40 MG/0.4 ML SYG SC (09:06)
[2018-01-13] MEDS: ACETAMINOPHEN 325 MG TAB PO ×2 (11:25→20:02)
[2018-01-13 14:17] LABS: OCCULT BLOOD STOOL POSITIVE (NEGATIVE)
[2018-01-13] MEDS: GUAIFENESIN/DM 5ML CUP PO (16:27)
[2018-01-13] MEDS: ATORVASTATIN 20 MG TAB PO (20:01)
[2018-01-13] MEDS: METOPROLOL 50 MG TAB PO (20:12)
[2018-01-13] MEDS: INSULIN GLARGINE [LANTus] (100 UNITS/ML) SYG SC (20:23)
[2018-01-14] MEDS: ACCU-CHEK XX (02:00)
[2018-01-14 06:19] LABS: ADD MAN DIFF? NO
[2018-01-14 06:24] LABS: WHITE BLOOD COUNT 8.1 10^3/ul (4.8-10.8)
[2018-01-14 06:24] LABS: ABNORMAL IP MESSAGE 1; BASOPHILS % 0.4 % (0.0-2.0); EOSINOPHILS # 0.1 10^3/ul (0.0-0.5); EOSINOPHILS % 1.7 % (0.0-7.0); HEMATOCRIT 23.9 % (37.0-47.0); HEMOGLOBIN 7.5 g/dl (12.0-16.0); LYMPHOCYTES # 1.4 10^3/ul (0.8-2.9); LYMPHOCYTES % 17.5 % (15.0-51.0); MEAN CORPUSCULAR HEMOGLOBIN 29.3 pg (29.0-33.0); MEAN CORPUSCULAR HGB CONC 31.4 g/dl (32.0-37.0); MEAN CORPUSCULAR VOLUME 93.4 fl (82.0-101.0); MONOCYTE # 0.7 10^3/ul (0.3-0.9); MONOCYTES % 8.5 % (0.0-11.0); NEUTROPHIL # 5.3 10^3/ul (1.6-7.5); NEUTROPHILS % 65.4 % (39.0-77.0); NUCLEATED RED BLOOD CELLS # 0.1 10^3/ul (0.0-0.0); NUCLEATED RED BLOOD CELLS% 1.1 /100WBC (0.0-0.0); PLATELET COUNT 452 10^3/UL (140-415); RED BLOOD COUNT 2.56 10^6/ul (4.20-5.40); RED CELL DISTRIBUTION WIDTH 13.6 % (11.5-14.5)
[2018-01-14 06:28] LABS: POSITIVE DIFF @See below
[2018-01-14 06:50] LABS: ANION GAP 7 (5-13); BLOOD UREA NITROGEN 6 mg/dl (7-20); CALCIUM 9.7 mg/dl (8.4-10.2); CARBON DIOXIDE 34 mmol/L (21-31); CHLORIDE 101 mmol/L (97-110); CREATININE 0.45 mg/dl (0.44-1.00); Estimated GFR > 60 mL/min (>60); GLUCOSE 125 mg/dl (70-220); MAGNESIUM 1.2 mg/dl (1.7-2.5); POTASSIUM 3.8 mmol/L (3.5-5.1); SODIUM 142 mmol/L (135-144)
[2018-01-14 08:24] LABS: BAND NEUTROPHILS #M 0.1 10^3/ul (0.0-0.6); BAND NEUTROPHILS % (M) 2 % (0-4); BURR CELLS 1+ (0-0); EOSINOPHILS % (M) 1 % (0-7); ERYTHROBLAST% (NRBC) (M) 3 % (0-0); GIANT THROMBO% (M) 1 % (0-0); LYMPHOCYTES #M 2.3 10^3/ul (0.8-2.9); LYMPHOCYTES % (M) 29 % (15-51); METAMYELOCYTES #M 0.1 10^3/ul (0.0-0.0); METAMYELOCYTES %M 2 % (0-0); MONOCYTE #M 0.7 10^3/ul (0.3-0.9); MONOCYTES % (M) 9 % (0-11); MYELOCYTES #M 0.1 10^3/ul (0.0-0.0); MYELOCYTES % (M) 2 % (0-0); PLATELET ESTIMATE NORMAL; POIKILOCYTOSIS 1+ (0-0); POLYCHROMASIA 2+ (0-0); REACTIVE LYMPHOCYTES% (M) 1 % (0-0); SEG NEUT #M 4.4 10^3/ul (1.6-7.5); SEGMENTED NEUTROPHILS (M) % 54 % (39-77); SMUDGE%M 11 % (0-0)
[2018-01-14] MEDS: METOPROLOL 50 MG TAB PO ×2 (09:03→20:02)
[2018-01-14] MEDS: CHOLECALCIFEROL 1,000 UNIT TAB PO (09:04)
[2018-01-14] MEDS: LACTOBACILLUS RHAMNOSUS CAP PO ×2 (09:04→20:01)
[2018-01-14] MEDS: ASPIRIN (EC) 81 MG TAB PO (09:04)
[2018-01-14] MEDS: LOSARTAN 50 MG TAB PO ×2 (09:04→20:02)
[2018-01-14] MEDS: INSULIN ASPART [NOVOLOG] 3 ML PEN SC ×7 (09:10→20:03)
[2018-01-14] MEDS: ENOXAPARIN 40 MG/0.4 ML SYG SC (09:11)
[2018-01-14] MEDS: MAGNESIUM SULFATE 3 GM in DEXTROSE 5% 100 ML IVPB (14:56)
[2018-01-14] MEDS: ATORVASTATIN 20 MG TAB PO (20:01)
[2018-01-14] MEDS: ACETAMINOPHEN 325 MG TAB PO (20:02)
[2018-01-14] MEDS: INSULIN GLARGINE [LANTus] (100 UNITS/ML) SYG SC (20:18)
[2018-01-15] MEDS: ACCU-CHEK XX (02:00)
[2018-01-15] MEDS: INSULIN ASPART [NOVOLOG] 3 ML PEN SC ×6 (07:42→18:18)
[2018-01-15] MEDS: CHOLECALCIFEROL 1,000 UNIT TAB PO (08:25)
[2018-01-15] MEDS: LACTOBACILLUS RHAMNOSUS CAP PO (08:25)
[2018-01-15] MEDS: LOSARTAN 50 MG TAB PO (08:26)
[2018-01-15] MEDS: ASPIRIN (EC) 81 MG TAB PO (08:26)
[2018-01-15] MEDS: METOPROLOL 50 MG TAB PO (08:26)
[2018-01-15] MEDS: ENOXAPARIN 40 MG/0.4 ML SYG SC (08:55)
== END 2018-01-15 18:25 | disposition home health service (06) | DRG 871 ==
LOC: 6WM 01-05 15:04 → E/R 09:34 → ICU 01-06 17:14 → 6WM 01-08 22:40 → PP2 14:52
PROC: 009U3ZX Drainage of Spinal Canal, Percutaneous Approach, Diagnostic (ICD-10-PCS; principal; 2018-01-06)
PROC: B01BYZZ Fluoroscopy of Spinal Cord using Other Contrast (ICD-10-PCS; 2018-01-06)
DX: A41.9 Sepsis, unspecified organism (principal); G92 Toxic encephalopathy; R65.20 Severe sepsis without septic shock; E83.39 Other disorders of phosphorus metabolism; E83.42 Hypomagnesemia; E78.5 Hyperlipidemia, unspecified; E11.9 Type 2 diabetes mellitus without complications; D64.9 Anemia, unspecified; E88.81 Metabolic syndrome and other insulin resistance; I10 Essential (primary) hypertension; E66.01 Morbid (severe) obesity due to excess calories; M19.90 Unspecified osteoarthritis, unspecified site; R62.7 Adult failure to thrive; R19.7 Diarrhea, unspecified; R09.02 Hypoxemia; Z68.34 Body mass index [BMI] 34.0-34.9, adult; Z79.84 Long term (current) use of oral hypoglycemic drugs
CPT/HCPCS: 36600; 70450; 70551; 70552; 71045; 80048; 80053; 80061; 80202; 80307; 81001; 82040; 82042; 82140; 82270; 82550; 82553; 82607; 82746; 82784; 82803; 82945; 82962; 83036; 83605; 83735; 84100; 84157; 84443; 84484; 85025; 85610; 85730; 86592; 86703; 86780; 86788; 86789; 87040; 87081; 87086; 87400; 89051; 92526; 92610; 93005; 93306; 93971; 94640; 96374; 96375; 97110; 97116; 97163; 97530; 99291-25

== ENCOUNTER 2018-03-07 22:09 | Emergency (ER) | payer OTHER ==
[2018-03-07 23:51] LABS: ADD MAN DIFF? NO
[2018-03-07 23:53] LABS: BASOPHILS % 0.6 % (0.0-2.0); EOSINOPHILS # 0.2 10^3/ul (0.0-0.5); EOSINOPHILS % 3.1 % (0.0-7.0); HEMATOCRIT 34.7 % (37.0-47.0); HEMOGLOBIN 10.4 g/dl (12.0-16.0); LYMPHOCYTES # 1.5 10^3/ul (0.8-2.9); LYMPHOCYTES % 29.1 % (15.0-51.0); MEAN CORPUSCULAR HEMOGLOBIN 26.5 pg (29.0-33.0); MEAN CORPUSCULAR VOLUME 88.5 fl (82.0-101.0); MEAN PLATELET VOLUME 11.1 fl (7.4-10.4); MONOCYTE # 0.6 10^3/ul (0.3-0.9); MONOCYTES % 12.3 % (0.0-11.0); NEUTROPHIL # 2.8 10^3/ul (1.6-7.5); NEUTROPHILS % 54.5 % (39.0-77.0); PLATELET COUNT 259 10^3/UL (140-415); RED BLOOD COUNT 3.92 10^6/ul (4.20-5.40); RED CELL DISTRIBUTION WIDTH 14.9 % (11.5-14.5)
[2018-03-07 23:53] LABS: WHITE BLOOD COUNT 5.2 10^3/ul (4.8-10.8)
[2018-03-07] MEDS: HYDROCODONE/APAP (10/325) TAB PO (23:53)
[2018-03-07] MEDS: ONDANSETRON (ODT) 4 MG TAB ODT (23:54)
[2018-03-08 00:10] LABS: CREATINE KINASE 40 IU/L (23-200)
[2018-03-08 00:17] LABS: ANION GAP 15 (5-13); BLOOD UREA NITROGEN 18 mg/dl (7-20); CALCIUM 10.3 mg/dl (8.4-10.2); CARBON DIOXIDE 28 mmol/L (21-31); CHLORIDE 100 mmol/L (97-110); CREATININE 0.62 mg/dl (0.44-1.00); Estimated GFR > 60 mL/min (>60); GLUCOSE 130 mg/dl (70-220); SODIUM 143 mmol/L (135-144)
== END 2018-03-08 01:50 | disposition home or self-care (01) ==
LOC: E/R 03-08 01:50
DX: M79.18 Myalgia, other site (principal); I10 Essential (primary) hypertension; E11.9 Type 2 diabetes mellitus without complications; E66.9 Obesity, unspecified; Z79.82 Long term (current) use of aspirin; Z79.84 Long term (current) use of oral hypoglycemic drugs
CPT/HCPCS: 36415; 80048; 82550; 85025; 93005; 99284-25

== ENCOUNTER 2018-06-07 16:51 | Emergency (ER) | payer OTHER ==
[2018-06-07 17:32] LABS: ADD MAN DIFF? NO
[2018-06-07 17:39] LABS: BASOPHIL # 0.1 10^3/ul (0.0-0.1); BASOPHILS % 0.4 % (0.0-2.0); EOSINOPHILS # 0.1 10^3/ul (0.0-0.5); EOSINOPHILS % 0.4 % (0.0-7.0); HEMATOCRIT 39.5 % (37.0-47.0); HEMOGLOBIN 12.1 g/dl (12.0-16.0); LYMPHOCYTES # 1.8 10^3/ul (0.8-2.9); LYMPHOCYTES % 15.9 % (15.0-51.0); MEAN CORPUSCULAR HEMOGLOBIN 27.1 pg (29.0-33.0); MEAN CORPUSCULAR HGB CONC 30.6 g/dl (32.0-37.0); MEAN CORPUSCULAR VOLUME 88.6 fl (82.0-101.0); MEAN PLATELET VOLUME 10.7 fl (7.4-10.4); MONOCYTE # 1.1 10^3/ul (0.3-0.9); MONOCYTES % 10.1 % (0.0-11.0); NEUTROPHILS % 72.3 % (39.0-77.0); PLATELET COUNT 224 10^3/UL (140-415); RED BLOOD COUNT 4.46 10^6/ul (4.20-5.40); RED CELL DISTRIBUTION WIDTH 15.8 % (11.5-14.5)
[2018-06-07 17:39] LABS: WHITE BLOOD COUNT 11.1 10^3/ul (4.8-10.8)
[2018-06-07 17:57] LABS: INR 1.21; PROTIME 15.4 Sec (11.9-14.9); PT RATIO 1.2
[2018-06-07 17:58] LABS: PARTIAL THROMBOPLASTIN TIME 27.7 Sec (23.0-35.0)
[2018-06-07 18:00] LABS: ANION GAP 14 (5-13); BLOOD UREA NITROGEN 22 mg/dl (7-20); CALCIUM 11.1 mg/dl (8.4-10.2); CARBON DIOXIDE 23 mmol/L (21-31); CHLORIDE 103 mmol/L (97-110); CREATININE 0.95 mg/dl (0.44-1.00); Estimated GFR > 60 mL/min (>60); GLUCOSE 223 mg/dl (70-220); POTASSIUM 4.3 mmol/L (3.5-5.1); SODIUM 140 mmol/L (135-144)
[2018-06-07] MEDS: NA PHOSPHATE/BIPHOS 133 ML ENEMA PR (18:02)
[2018-06-07] MEDS: SOD CHLORIDE 0.9% 1,000 ML IV (18:03)
[2018-06-07 18:12] LABS: TROPONIN-I < 0.012 ng/ml (0.000-0.120)
[2018-06-07] MEDS: IOHEXOL 300MG/ML 150 ML BTL (18:15)
[2018-06-07] MEDS: SOD CHLORIDE 0.9% 100 ML (18:15)
== END 2018-06-07 20:30 | disposition home or self-care (01) ==
LOC: E/R 16:51
DX: K59.00 Constipation, unspecified (principal); T39.91XA Poisoning by unspecified nonopioid analgesic, antipyretic and antirheumatic, accidental (unintentional), initial encounter; I10 Essential (primary) hypertension; E11.9 Type 2 diabetes mellitus without complications; E66.9 Obesity, unspecified; R07.9 Chest pain, unspecified; R55 Syncope and collapse; Z68.27 Body mass index [BMI] 27.0-27.9, adult; Z79.82 Long term (current) use of aspirin; Z79.84 Long term (current) use of oral hypoglycemic drugs
CPT/HCPCS: 36415; 70450; 71045; 74177; 80048; 84484; 85025; 85610; 85730; 93005; 99285-25